=== PATIENT | male | born 1960 | race Asian ===

== ENCOUNTER 2018-09-10 07:31 | Emergency (ER) | payer OTHER ==
[~2018-09-10] VITALS: Ht 165.1 cm; Wt 83.9 kg
[2018-09-10 07:38] VITALS: TEMP 98.1
[2018-09-10 08:26] LABS: PLATELET COUNT 236 K/uL (142-355)
[2018-09-10 08:40] LABS: POTASSIUM 3.9 mmol/L (3.6-5.2)
[2018-09-10 10:43] VITALS: BP 133/90
== END 2018-09-10 10:46 | disposition home or self-care (01) ==
LOC: ED 07:31
PROVIDERS: Family Medicine
DX: I10 Essential (primary) hypertension (principal); R51 Headache; J01.90 Acute sinusitis, unspecified
CPT/HCPCS: 36415; 80053; 81000; 85027; 96372; 99283; J1885

== ENCOUNTER 2021-03-13 06:06 | Emergency (ER) | payer OTHER ==
[~2021-03-13] VITALS: Ht 165.1 cm; Wt 79.4 kg
[2021-03-13 06:25] VITALS: BP 158/102; TEMP 98.1
== END 2021-03-13 08:44 | disposition home or self-care (01) ==
LOC: ED 06:06
DX: M62.838 Other muscle spasm (principal)
CPT/HCPCS: 96372; 99282; J2360

== ENCOUNTER 2022-04-04 06:53 | Emergency (ER) | payer OTHER ==
[~2022-04-04] VITALS: Ht 165.1 cm; Wt 79.4 kg
[2022-04-04 07:04] VITALS: BP 181/97; TEMP 98.1
[2022-04-04 08:01] LABS: POTASSIUM 3.4 mmol/L (3.6-5.2)
[2022-04-04 08:07] LABS: PLATELET COUNT 214 K/uL (142-355)
[2022-04-04 08:30] LABS: PARTIAL THROMBOPLASTIN TIME 28.1 SECONDS (24.5-33.6)
== END 2022-04-04 10:13 | disposition still patient (30) ==
LOC: ED 06:53
PROVIDERS: Emergency Medicine
DX: R10.84 Generalized abdominal pain (principal)
CPT/HCPCS: 36415; 80053; 81002; 83690; 84484; 85027; 85610; 85730; 93005; 96360; 96374; 96375; 99284; J1170; J2270; J2405; J3490; Q9963